=== PATIENT | female | born 1995 | race Caucasian/White ===

== ENCOUNTER 2020-05-18 13:16 | Emergency (ER) | payer BC, SELFPAY ==
[2020-05-18 13:30] VITALS: BP 126/78; PULSE 84; RESP 20; TEMP 35.9; O2SAT 98; BMI 28.8
[2020-05-18 13:56] LABS: UTC Strep Screen (Rapid) Positive (Negative)
[2020-05-18 14:13] VITALS: BP 126/78; PULSE 84; RESP 20; TEMP 35.9; O2SAT 98
--- NOTE | 2020-05-18 14:22 | HMH.EDUTC ---
[facility] Disposition Clinical Impression: Sinusitis Qualifiers: Sinusitis location: unspecified location Chronicity: acute Recurrence: non-recurrent Qualified Code(s): J01.90 - Acute sinusitis, unspecified Disposition: Home, Self-Care Condition on Discharge: Good Instructions: DI for Sinusitis Additional Instructions: Drink plenty of fluids. Take tylenol or ibuprofen for pain or fever. Take the medications as directed. Follow up with your regular doctor. GO TO THE ER FOR ANY WORSENING SYMPTOMS Prescriptions: predniSONE [Deltasone 10mg tablet] 10 mg PO BID 3 Days #6 tab Transmission Status: Received by [facility] #[id number] Azithromycin [Z-Raymond 250mg Tab*] 250 mg PO UD DOSE PK #6 tab Transmission Status: [id number] Referrals: PCP,No [Primary Care Provider] - Time of Disposition: 14:24 Medical Decision Making - Medical Records Medical records reviewed: No: I reviewed the patient's medical records. - Tramaine Inquiry Pt receiving controlled substance: No Vital Signs: 05/18/20 13:30 05/18/20 14:13 Temperature 96.7 F L 96.7 F L Temperature Source Temporal Artery Scan Pulse Rate 84 Pulse Rate [Right Brachial] 84 Respiratory Rate 20 20 Blood Pressure 126/78 Blood Pressure [Right Arm] 126/78 Blood Pressure Mean [Right Arm] 94 Blood Pressure Source [Right Arm] Automatic Cuff Blood Pressure Position [Right Arm] Sitting 02 Sat by Pulse Oximetry 98 Oxygen Delivery Method Room Air - Lab Data Lab results reviewed: Yes: I reviewed the patient's lab results. Lab Results 05/18/20 13:55: Strep Scn Rapid Clinic Positive A [facility] HPI - General Stated complaint: sore throat,headache,ear pain Time Seen by Provider: 05/18/20 14:22 Mode of Arrival: Ambulatory Source of Information: Patient Limitations: No Limitations Description of Symptoms (Recalled from Triage Doc. by RN): PATIENT C/O SORE THROAT, COUGH, SNEEZING AND EAR PAIN X 2-3 DAYS HEENT Symptoms (Recalled from RN notes): Yes Resp Symptoms (Recalled from RN notes): Yes Skin Symptoms (Recalled from RN notes): No MS Symptoms (Recalled from RN notes): No Functional Status (Recalled from RN notes): WNL - History of Present Illness Provider Complaint: She c/o sore throat, sinus congestion, bilateral ear pain for the past 2 days. - Related Data Previous Rx's Medication Instructions Recorded Azithromycin [Z-Raymond 250mg Tab*] 250 mg PO UD DOSE PK #6 tab 05/18/20 predniSONE [Deltasone 10mg tablet] 10 mg PO BID 3 Days #6 tab 05/18/20 Allergies Allergy/AdvReac Type Severity Reaction Status Date / Time Penicillins Allergy Verified 04/23/18 23:57 - Worker's Comp Is this a Worker's Comp case?: No [facility] History - Hepatitis A Screen Drug use history?: No High risk sexual behaviors?: No History of sexually transmitted infection?: No Currently employed?: No Childcare worker?: No Do you have indoor plumbing?: Yes Do you have electricity?: Yes Attestation statement:: This patient has been screened for Hepatitis A risk factors. I have reviewed the patient's past medical history: Yes Medical History: Denies:: Cancer, Diabetes Mellitus Type 1, Diabetes Mellitus Type 2, MRSA Laterality Cases: Bilateral: Tonsillectomy Amputation: No Fractures: No - Social History Smoking Status: Never smoker Alcohol Intake: never Occupational Status: other Housing: house Household Members: significant other ROS Obtained: Yes All systems reviewed & no additional complaints - Constitutional Constitutional: Denies body ache, Denies chills, Denies fever(s), Reports poor appetite, Reports malaise - Eyes Eyes: Denies eye discharge - ENT Ears, Nose, Mouth, and Throat: Reports as per HPI - Cardiovascular Cardiovascular: Denies chest pain - Respiratory Respiratory: Denies chest congestion, Reports cough, Denies dyspnea, Denies stridor, Denies wheezing - Gastrointestinal Gastrointestingal: Denies: abdominal pain
== END 2020-05-18 14:25 | disposition home or self-care (01) ==
PROVIDERS: Emergency Provider Nurse Practitioner Family
DX: J01.90 Acute sinusitis, unspecified (principal); J02.0 Streptococcal pharyngitis
CPT/HCPCS: 87880; 99202; G0463

== ENCOUNTER 2020-11-26 19:57 | Emergency (ER) | payer BC, SELFPAY ==
[2020-11-26 19:56] VITALS: BP 145/84; PULSE 100; RESP 20; TEMP 37; O2SAT 97; BMI 29.5
--- NOTE | 2020-11-26 20:31 | CT_ITS ---
PROCEDURE INFORMATION: Exam: CT Lumbar Spine With Contrast Exam date and time: 11/26/2020 8:31 PM Age: 25 years old Clinical indication: Low back pain; Additional info: Low back pain, paresthesia bilat leg TECHNIQUE: Imaging protocol: Computed tomography images of the lumbar spine with intravenous contrast. Radiation optimization: All CT scans at this facility use at least one of these dose optimization techniques: automated exposure control; mA and/or kV adjustment per patient size (includes targeted exams where dose is matched to clinical indication); or iterative reconstruction. Contrast material: ISOVUE; Contrast volume: 100 ml; Contrast route: IV; COMPARISON: SPLUMBWO CT lumbar spine wo con 04/09/2018 1:24 PM FINDINGS: Vertebrae: No acute fracture. Normal alignment. L1-L2: No significant disc protrusion. No severe spinal canal stenosis. No significant neural foraminal narrowing. L2-L3: No significant disc protrusion. No severe spinal canal stenosis. No significant neural foraminal narrowing. L3-L4: No significant disc protrusion. No severe spinal canal stenosis. No significant neural foraminal narrowing. L4-L5: No significant disc protrusion. No severe spinal canal stenosis. No significant neural foraminal narrowing. L5-S1: There is a central posterior disc protrusion identified. The disc protrusion contacts the anterior aspect of the thecal sac. There is a small calcific density adjacent to the medial and posterior aspect of the right S1 nerve root. No evidence of significant effacement of the origins of the S1 nerve roots. No severe spinal canal stenosis. No significant neural foraminal narrowing. Soft tissues: The uterus is eccentric within the pelvis to the left. No evidence of paraspinal mass. IMPRESSION: Suspected central posterior disc protrusion at L5-S1 without evidence of central canal stenosis. There is a small calcific density which is associated with the origin of the right S1 nerve root. To further evaluate this finding correlation with magnetic resonance imaging of the lumbar spine may be helpful.
[2020-11-26 20:48] LABS: Basophils % 0.6 % (0.1-2.0); Eosinophils # 0.1 K/mm3 (0.0-0.4); Eosinophils % 1.1 % (0.1-12.0); Hematocrit 37.8 % (37.0-47.0); Lymphocytes # 2.1 K/mm3 (0.7-4.5); Lymphocytes % 27.2 % (10-50); Mean Corpuscular HGB Conc 34.3 g/dL (31.8-35.4); Mean Corpuscular Hemoglobin 30.2 pg (27.0-31.2); Mean Corpuscular Volume 87.9 fl (81-99); Mean Platelet Volume 8.6 fl (7.4-10.4); Monocytes # 0.4 K/mm3 (0.1-1.0); Monocytes % 4.7 % (1.7-9.3); Neutrophils # 5.1 K/mm3 (1.8-7.8); Neutrophils % 66.4 % (37.0-80.0); Platelet Count 192 K/mm3 (142-424); White Blood Count 7.7 K/mm3 (4.8-10.8)
[2020-11-26 20:54] LABS: Alanine Aminotransferase 28 U/L (12-78); Albumin Level 4.3 g/dl (3.5-5.0); Albumin/Globulin Ratio 1.4 (1.1-1.8); Alkaline Phosphatase 53 U/L (38-126); Aspartate Amino Transferase 31 U/L (14-36); Blood Urea Nitrogen 12 mg/dl (7-17); Carbon Dioxide 24 mmol/L (22.0-30.0); Chloride 106 mmol/L (98-107); Creatinine Clearance Estimated 156 mL/min (50-200); Estimated Glomerular Filt Rate 76 ml/min (>60); GFR (African American) 92 ML/MIN (>60); Glucose 104 mg/dl (74-100); Sodium 141 mmol/L (136-145); Total Protein,Serum 7.3 g/dl (6.3-8.2)
[2020-11-26 20:59] LABS: C-Reactive Protein 0.5 mg/L (0-4)
[2020-11-26 21:00] LABS: HCG Qualitative, Serum Negative (Negative)
[2020-11-26 21:13] LABS: Procalcitonin 0.039 ng/mL (0.0-2.0)
--- NOTE | 2020-11-26 21:14 | PC.NURSE ---
patient to radiology
[2020-11-26 21:15] LABS: Erythrocyte Sedimentation Rate 16 mm/hr (0-20)
[2020-11-26 21:16] LABS: Bilirubin,Total 0.1 mg/dl (0.2-1.3)
[2020-11-26 21:52] LABS: Microscopic, Urine URINE MICROSCOPIC (MICROSCOPIC)
[2020-11-26 21:58] LABS: Appearance,Urine CLEAR (Clear); Bilirubin,Urine Negative (Negative); Blood, Urine Negative (Negative); Color,Urine YELLOW (Yellow); Glucose,Urine (UA) Negative (Negative); Ketones,Urine Negative (Negative); Leukocyte Esterase,Urine Negative (Negative); Nitrate,Urine Negative (Negative); Protein,Urine Negative (Negative); Urobilinogen,Urine 0.2 EU/dl (0.2)
[2020-11-26 22:08] LABS: RBC,Urine Occasional #/hpf (0-3); WBC,Urine Occasional #/hpf (0-3)
--- NOTE | 2020-11-26 22:36 | HMH.EDBACK ---
ED Disposition Clinical Impression: Lumbar radiculopathy Disposition: Home, Self-Care Condition on Discharge: Good Instructions: DI for Back Pain With Sciatica Additional Instructions: call pcp in am for follow up Prescriptions: predniSONE [Prednisone 20mg Tab] 20 mg PO BID #10 tab Transmission Status: Pending to [facility] #[id number] Tizanidine HCl [Zanaflex 4mg tab] 4 mg PO TID PRN #21 tab PRN Reason: Muscle Spasm Transmission Status: Pending to [facility] #[id number] Referrals: Magno Nguyen MD [Primary Care Provider] - - Critical Care Critical Care Time: No Attestation: On 11/26/20, the high probability of a clinically significant, sudden or life threatening deterioration of the following system(s) required my full and direct attention, intervention and personal management. The time I documented below is in addition to time spent performing reported procedures but includes the following listed in this critical care notation. Medical Decision Making - Medical Records Medical records reviewed: Yes: I reviewed the patient's medical records. - Tramaine Inquiry Pt receiving controlled substance: No Vital Signs: 11/26/20 19:56 Temperature 98.6 F Temperature Source Oral Pulse Rate [Right] 100 H Respiratory Rate 20 Blood Pressure [Right Arm] 145/84 H Blood Pressure Mean [Right Arm] 104 Blood Pressure Source [Right Arm] Automatic Cuff 02 Sat by Pulse Oximetry 97 Oxygen Delivery Method Room Air - Lab Data Lab results reviewed: Yes: I reviewed the patient's lab results. Lab Results 11/26/20 20:34: WBC 7.7, RBC 4.30, Hgb 13.0, Hct 37.8, MCV 87.9, MCH 30.2, MCHC 34.3, RDW 12.0, Plt Count 192, MPV 8.6, Neut % (Auto) 66.4, Lymph % (Auto) 27.2, [place] % (Auto) 4.7, Eos % (Auto) 1.1, Baso % (Auto) 0.6, Neut # (Auto) 5.1, Lymph # (Auto) 2.1, [place] # (Auto) 0.4, Eos # (Auto) 0.1, Baso # (Auto) 0.0, ESR 16 11/26/20 20:34: Sodium 141, Potassium 4.0, Chloride 106, Carbon Dioxide 24, Anion Gap 15.0, BUN 12, Creatinine 0.90, Estimated Creat Clear 156, Estimated GFR 76, Est GFR ( Amer) 92, Glucose 104 H, Calcium 9.0, Total Bilirubin 0.1 L, AST 31, ALT 28, Alkaline Phosphatase 53, C-Reactive Protein 0.5, Total Protein 7.3, Albumin 4.3, Globulin 3.0, Albumin/Globulin Ratio 1.4, Procalcitonin 0.039 11/26/20 20:34: Serum HCG, Qual Negative 11/26/20 21:41: Urine Color Yellow, Urine Appearance Clear, Urine pH 7.0, Ur Specific [place] 1.020, Urine Protein Negative, Urine Glucose (UA) Negative, Urine Ketones Negative, Urine Blood Negative, Urine Nitrate Negative, Urine Bilirubin Negative, Urine Urobilinogen 0.2, Ur Leukocyte Esterase Negative, Urine RBC Occasional, Urine WBC Occasional, Ur Squamous Epith Cells 3-5, Urine Bacteria None Result diagrams: 11/26/20 20:34 11/26/20 20:34 Orders (Tests/Meds): ED MEDICATIONS Generic Name Dose Route Start Last Admin Trade Name Freq PRN Reason Stop Dose Admin Sodium Chloride 1,000 mls @ 999 mls/hr 11/26/20 20:45 11/26/20 20:54 Sod Chlor 0.9% 1000ml Bag IV 11/26/20 21:45 999 mls/hr .Q1H1M KRYSTIAN Administration Methocarbamol 1,000 mg 11/27/20 09:00 11/26/20 22:22 Methocarbamol 500mg Tablet PO 12/27/20 08:59 1,000 mg BID KRYSTIAN Administration Discontinued Medications Generic Name Dose Route Start Last Admin Trade Name Freq PRN Reason Stop Dose Admin Acetaminophen/Codeine Phosphate 1 boby 11/26/20 23:00 Acetaminophen 300mg W/Codeine 30mg Take Home Pack (6) PO 11/26/20 23:01 ONCE ONE Hydromorphone HCl 1 mg 11/26/20 22:16 11/26/20 22:22 Hydromorphone 2mg/Ml Syringe IV 11/26/20 22:17 1 mg ONCE ONE Administration Iopamidol 100 ml 11/26/20 21:27 11/26/20 21:28 Iopamidol-370 (76%);100ml Bottle IV 11/26/20 21:28 100 ml ONCE ONE Administration Ketorolac Tromethamine 30 mg 11/26/20 20:31 11/26/20 20:54 Ketorolac 30mg/Ml Vial IV 11/26/20 20:32 30 mg ONCE ONE Administration Methylprednisolone Sodium Succinate 125 m
[2020-11-26 23:02] VITALS: BP 117/72; PULSE 87; RESP 16; TEMP 36.8
== END 2020-11-26 23:27 | disposition home or self-care (01) ==
PROVIDERS: Emergency Provider Emergency Medicine; PCP Family Medicine
DX: M54.16 Radiculopathy, lumbar region (principal)
CPT/HCPCS: 72132; 80053; 81001; 84145; 84703; 85025; 85651; 86140; 96365; 99283; J2405; Q9967

== ENCOUNTER → 2021-05-27 15:01 | Outpatient (CLI) | payer BC, SELFPAY ==
[2021-05-27 15:26] LABS: Adenovirus,PCR Not Detected (NotDetected); Bordetella Pertussis Not Detected (NotDetected); Chlamydophila Pneumoniae, PCR Not Detected (NotDetected); Coronavirus 229E Not Detected (NotDetected); Coronavirus NL63 Not Detected (NotDetected); Coronavirus OC43 Not Detected (NotDetected); Coronovirus HKU1,PCR Not Detected (NotDetected); Human Metapneumovirus Not Detected (NotDetected); Influenza A, PCR Not Detected (NotDetected); Influenza AH1, 2009 Not Detected (NotDetected); Influenza AH1, PCR Not Detected (NotDetected); Influenza AH3,PCR Not Detected (NotDetected); Influenza B, PCR Not Detected (NotDetected); Mycoplasma Pneumoniae, PCR Not Detected (NotDetected); Parainfluenza 1, PCR Not Detected (NotDetected); Parainfluenza 2, PCR Not Detected (NotDetected); Parainfluenza 3, PCR Not Detected (NotDetected); Parainfluenza 4, PCR Not Detected (NotDetected); Respiratory Syncytial Virus Not Detected (NotDetected); Rhinovirus/Enterovirus Not Detected (NotDetected)
[2021-05-27 15:33] LABS: Basophils % 0.4 % (0.1-2.0); Eosinophils % 0.5 % (0.1-12.0); Hematocrit 40.4 % (37.0-47.0); Hemoglobin 13.4 g/dL (12.2-16.2); Lymphocytes # 0.6 K/mm3 (0.7-4.5); Lymphocytes % 18.6 % (10-50); Mean Corpuscular HGB Conc 33.3 g/dL (31.8-35.4); Mean Corpuscular Hemoglobin 29.2 pg (27.0-31.2); Mean Corpuscular Volume 87.9 fl (81-99); Mean Platelet Volume 8.9 fl (7.4-10.4); Monocytes # 0.4 K/mm3 (0.1-1.0); Monocytes % 10.8 % (1.7-9.3); Neutrophils # 2.3 K/mm3 (1.8-7.8); Neutrophils % 69.7 % (37.0-80.0); Platelet Count 163 K/mm3 (142-424); White Blood Count 3.4 K/mm3 (4.8-10.8)
[2021-05-27 18:36] LABS: Coronavirus 19, PCR Detected (NotDetected)
== END ==
PROVIDERS: PCP Family Medicine; Visit Provider Family Medicine
DX: U07.1 COVID-19 (principal)
CPT/HCPCS: 36415; 85025; 87581; 87632; 87798; C9803; U0003; U0005

== ENCOUNTER → 2021-10-07 07:11 | Outpatient (CLI) | payer BC, SELFPAY ==
[2021-10-06 19:57] LABS: Alanine Aminotransferase 33 U/L (12-78); Albumin Level 4.6 g/dl (3.5-5.0); Alkaline Phosphatase 67 U/L (38-126); Aspartate Amino Transferase 38 U/L (14-36); Bilirubin,Indirect 0.2 mg/dL (0.0-0.9); Bilirubin,Total 0.2 mg/dl (0.2-1.3); Bilirubin,Unconjugated 0.4 mg/dL (0.0-1.1); Total Protein,Serum 7.9 g/dl (6.3-8.2)
[2021-10-06 20:16] LABS: 25-OH Vitamin D, Total 57.4 ng/mL (30-100)
== END ==
PROVIDERS: PCP Nurse Practitioner; Visit Provider Nurse Practitioner
DX: R79.89 Other specified abnormal findings of blood chemistry (principal); E55.9 Vitamin D deficiency, unspecified
CPT/HCPCS: 80076; 82306